=== PATIENT | male | born 1970 | race Caucasian/White ===

== ENCOUNTER 2018-05-03 05:47 | Day surgery (SDC) | payer OTHER ==
[2018-05-03] MEDS ORDERED: NEXIUM 24HR20 MG PO (07:38)
== END 2018-05-03 09:00 | disposition home or self-care (01) ==
LOC: AMB-ENDOS 05:47
DX: K29.30 Chronic superficial gastritis without bleeding (principal); K44.9 Diaphragmatic hernia without obstruction or gangrene